=== PATIENT | female | born 1980 | race Caucasian/White ===

== ENCOUNTER 2016-08-09 13:29 | Emergency (ER) | payer OTHER ==
[~2016-08-09] VITALS: Ht 162.6 cm; Wt 80.9 kg
[~2016-08-09 13:29] MED LIST: NAPROXEN500 M1 PO; PREDNISONE20 MG PO
[2016-08-09 14:34] VITALS: BP 129/74
== END 2016-08-09 15:16 | disposition left against medical advice (07) ==
LOC: EME 13:29
DX: S71.152A Open bite, left thigh, initial encounter (principal); W54.0XXA Bitten by dog, initial encounter; Z53.21 Procedure and treatment not carried out due to patient leaving prior to being seen by health care provider
CPT/HCPCS: 99281; 99283